=== PATIENT | male | born 1960 | race Caucasian/White ===

== ENCOUNTER → 2021-03-31 | Outpatient (CLI) | payer MEDICARE, OTHER ==
[2020-11-09 11:00] VITALS: BP 127/58
[~2021-03-31] MED LIST: ASPI-886 PO; ATOR40TA59 PO; CARV6.2511 PO; ESCITALOPRAM OX20 MG PO; FOLI0.8T7 PO; ONDA4TAB7 PO; ROPI1TAB4 PO
--- NOTE | 2021-04-01 13:27 | EEG ---
DATE OF SERVICE: 03/31/2021 ELECTROENCEPHALOGRAM REPORT EEG NUMBER: [id number] performed on 03/31/2021. OBJECTIVE: The patient is a 60-year-old male with new seizure, although he has a history of childhood seizures. DESCRIPTION: This is a digital study. Electrodes are placed according to the international 10-20 system. Bipolar and referential montages are available. Activation procedures typically include hyperventilation and intermittent photic stimulation. INTERPRETATION: The waking background consists of 9-10 Hz, 50-100 microvolt activity, symmetrically distributed over parietooccipital regions and reactive to eye opening. Hyperventilation and intermittent photic stimulation are noncontributory. Stage II sleep was achieved with normal electroencephalogram patterns. IMPRESSION: This electroencephalogram with the patient awake and asleep is within normal limits. There is no focal, paroxysmal, or epileptiform activity. Thank you for letting us help with the patient's care. EILEEN DR: Willem TID: [id number] CC: Lizabeth Garcia MD
== END ==
LOC: RT 08:58
PROVIDERS: ATTEND Nurse Practitioner Family
DX: G40.909 Epilepsy, unspecified, not intractable, without status epilepticus (principal)
CPT/HCPCS: 95816